=== PATIENT | male | born 1990 | race Caucasian/White ===

== ENCOUNTER 2017-02-14 20:16 | Emergency (ER) | payer OTHER ==
[~2017-02-14] VITALS: Ht 177.8 cm; Wt 105.5 kg
[2017-02-14 22:53] LABS: BASO % 0.4 % (0.0-1.0); EOS # 0.1 K/mm3 (0.0-0.50); EOS % 1.8 % (0.0-3.0); LARGE UNSTAINED CELL # 0.1 K/mm3 (0.0-0.4); LARGE UNSTAINED CELL % 1.2 % (0.0-4.0); LYMPH # 1.1 K/mm3 (1.5-6.5); MEAN CORPUSCULAR HEMOGLOBIN 31.3 pg (27.0-33.0); MEAN CORPUSCULAR VOLUME 86.8 fl (80.0-96.0); MONO # 0.4 K/mm3 (0.0-0.8); MONO % 5.4 % (0.0-5.0); NEUTROPHILS # 5.2 K/mm3 (1.8-7.7); NEUTROPHILS % 76.2 % (36.0-66.0); PLATELET COUNT, AUTOMATED 188 k/mm3 (150-450); RED CELL DISTRIBUTION WIDTH 11.8 % (11.5-14.5); WHITE BLOOD COUNT 6.8 K/mm3 (4.0-10.0)
[2017-02-14 23:04] LABS: INR 1.05
[2017-02-14 23:14] LABS: BLOOD UREA NITROGEN 13 MG/DL (7-18); CALCIUM LEVEL 8.8 MG/DL (8.5-10.1); CARBON DIOXIDE LEVEL 29 MEQ/L (21-32); CHLORIDE LEVEL 106 MEQ/L (98-107); CREATININE FOR GFR 1.21 MG/DL (0.70-1.30); GLUCOSE, FASTING 121 MG/DL (70-105); MAGNESIUM LEVEL 2.1 MG/DL (1.8-2.4); POTASSIUM SERUM 3.8 MEQ/L (3.5-5.1)
[2017-02-14 23:21] LABS: METHADONE URINE NEGATIVE (NEGATIVE)
[2017-02-14 23:50] LABS: ANION GAP 5 MEQ/L (8-16); SODIUM LEVEL 140 MEQ/L (136-145)
--- NOTE | 2017-02-15 00:06 | REP ---
Clinical: Syncope . Comparison: None . Findings: The ventricles, sulci, and cisterns are normal in position and appearance. Gaines-white differentiation is maintained. No acute intracranial hemorrhage, mass/mass effect, pathology or trauma/injury. No evidence for acute infarction. No extra-axial fluid collection. Calvarium is intact. Paranasal sinuses and mastoid air cells are clear. Impression: Normal noncontrast head CT. No evidence for acute intracranial pathology or trauma/injury. Signed by Chao Taylor MD 02/14/2017 11:56 P
[2017-02-15] MEDS ORDERED: NS 1,000 ML IV ONE ×2 (00:30)
[2017-02-15 03:57] VITALS: BP 124/72
--- NOTE | 2017-02-15 08:23 | ECGEPIP ---
Stationary ECG Study [facility] - ED Test Date: 2017-02-14 Pat Name: ALY VINES Department: Room: - Gender: M Cellular Equipment Installer: brando : 1990 Requested By: MARCELO DOWLING Order Number: [id number] Reading MD: Tonya De Measurements Intervals [place] Rate: 61 P: 58 LA: 174 QRS: 53 QRSD: 102 T: 12 QT: 378 QTc: 382 Interpretive Statements SINUS RHYTHM WITH MARKED SINUS ARRHYTHMIA NO PRIOR FOR COMPARISON Electronically Signed On 02-15-2017 8:23:42 EDT by Tonya De
--- NOTE | 2017-02-15 09:03 | REP ---
Clinical: Syncope . Comparison: None . Findings: The mediastinum and cardiac silhouette are stable and within normal limits for portable technique. The lung arora are clear without acute consolidation, effusion, or pneumothorax. Skeletal structures are intact. Impression: No acute cardiopulmonary process appreciated. Signed by Chao Taylor MD 02/15/2017 08:55 A
== END 2017-02-15 04:03 | disposition home or self-care (01) ==
LOC: M ED 20:16
DX: R55 Syncope and collapse (principal); G40.909 Epilepsy, unspecified, not intractable, without status epilepticus
CPT/HCPCS: 70450; 71010; 80048; 80307; 82550; 82553; 83605; 83735; 84443; 85025; 85610; 93005; 93041; 94760; 99284; G0480